=== PATIENT | male | born 1985 | race Caucasian/White ===

== ENCOUNTER 2019-08-30 04:46 | Emergency (ER) | payer MEDICAID ==
[~2019-08-30] VITALS: Ht 177.8 cm; Wt 79.4 kg
[2019-08-30 04:55] VITALS: BP 150/76
--- NOTE | 2019-08-30 04:55 | NUR ---
TO BED # 11 AMBULATORY
[2019-08-30 05:04] VITALS: BP 150/76
--- NOTE | 2019-08-30 05:04 | NUR ---
34 Y/O M PRESENTS TO ED WITH LACERATION. PT STATED HE WAS ATTEMPTING TO OPEN AN UNDERWEAR CONTAINER WITH A BOXCUTTER AND CUT HIMSELF. LACERATION NOTED LT 5TH FINGER. BLEEDING CONTROLLED. CLEAN AND APPROXIMATED EDGES NOTED. ERMD AWARE OF PT STATUS. WILL CONTINUE TO MONITOR.
[2019-08-30] MEDS ORDERED: LIDOCAINE 2% 1000 MG/50 ML VIAL INJ ONE (05:40)
[2019-08-30] MEDS ORDERED: BACITRACIN OINT 500 UNITS/GM PKT TP ONE (06:00)
--- NOTE | 2019-08-30 06:21 | NUR ---
Patient discharged with v/s stable. Written and verbal after care instructions given and explained. Patient alert, oriented and verbalized understanding of instructions. Ambulatory with steady gait. All questions addressed prior to discharge. ID band removed. Patient advised to follow up with PMD. Rx of motrin and bactrim given. Patient educated on indication of medication including possible reaction and side effects. Opportunity to ask questions provided and answered.
== END 2019-08-30 06:21 | disposition home or self-care (01) ==
LOC: MED 04:46
DX: S61.217A Laceration without foreign body of left little finger without damage to nail, initial encounter (principal); R03.0 Elevated blood-pressure reading, without diagnosis of hypertension; W45.8XXA Other foreign body or object entering through skin, initial encounter; Y93.89 Activity, other specified; Y92.89 Other specified places as the place of occurrence of the external cause; Y99.8 Other external cause status
CPT/HCPCS: 12001; 99283; J2001